=== PATIENT | female | born 1955 | race African-American/Black ===

== ENCOUNTER 2017-12-17 06:36 | Emergency (ER) | payer MEDICAID ==
[~2017-12-17] VITALS: Ht 170.2 cm; Wt 72.0 kg
[~2017-12-17 06:36] MED LIST: LOSA50TA20 PO
[2017-12-17 10:00] VITALS: BP 139/77
== END 2017-12-17 10:23 | disposition home or self-care (01) ==
LOC: ER 06:36
DX: J06.9 Acute upper respiratory infection, unspecified (principal)
CPT/HCPCS: 71045; 99283

== ENCOUNTER 2018-01-09 06:18 | Emergency (ER) | payer MEDICAID ==
[~2018-01-09] VITALS: Ht 170.2 cm; Wt 79.0 kg
[2018-01-09] MEDS ORDERED: IBUPROFEN 600MG TABLET PO ONE (06:45)
[2018-01-09 08:14] VITALS: BP 143/80
== END 2018-01-09 09:02 | disposition home or self-care (01) ==
LOC: ER 06:18
DX: S16.1XXA Strain of muscle, fascia and tendon at neck level, initial encounter (principal); S29.9XXA Unspecified injury of thorax, initial encounter; S29.012A Strain of muscle and tendon of back wall of thorax, initial encounter; R51 Headache; I10 Essential (primary) hypertension; M47.814 Spondylosis without myelopathy or radiculopathy, thoracic region; Y92.410 Unspecified street and highway as the place of occurrence of the external cause
CPT/HCPCS: 70450; 72070; 72125; 99284; Z7610

== ENCOUNTER 2018-01-10 20:34 | Emergency (ER) | payer MEDICAID ==
[~2018-01-10] VITALS: Ht 172.7 cm; Wt 77.0 kg
[2018-01-10] MEDS ORDERED: CYCLOBENZAPRINE 10MG TABLET PO ONE (22:15)
[2018-01-10] MEDS ORDERED: IBUPROFEN 600MG TABLET PO ONE (22:15)
[2018-01-10 22:44] VITALS: BP 126/82
== END 2018-01-10 22:45 | disposition home or self-care (01) ==
LOC: ER 21:21
DX: M54.6 Pain in thoracic spine (principal); M79.1 Myalgia; I10 Essential (primary) hypertension; V89.0XXA Person injured in unspecified motor-vehicle accident, nontraffic, initial encounter; Y93.89 Activity, other specified; Y92.89 Other specified places as the place of occurrence of the external cause; Y99.8 Other external cause status
CPT/HCPCS: 99283

== ENCOUNTER 2018-03-24 12:08 | Emergency (ER) | payer MEDICAID ==
[~2018-03-24] VITALS: Ht 175.3 cm; Wt 89.0 kg
[2018-03-24] MEDS ORDERED: LORAZEPAM 1MG TABLET PO ONE (12:30)
[2018-03-24 15:30] VITALS: BP 133/86
== END 2018-03-24 15:31 | disposition home or self-care (01) ==
LOC: ER 13:26
DX: F41.9 Anxiety disorder, unspecified (principal); I10 Essential (primary) hypertension; G40.909 Epilepsy, unspecified, not intractable, without status epilepticus
CPT/HCPCS: 99284

== ENCOUNTER 2021-05-24 10:12 | Emergency (ER) | payer MEDICAID ==
[~2021-05-24] VITALS: Ht 162.6 cm; Wt 65.0 kg
[~2021-05-24 10:12] MED LIST changes: -LOSA50TA20 PO; +LOSA50TA41 PO
[2021-05-24] MEDS ORDERED: KETOROLAC 30MG/ML VIAL IV STA (10:35)
[2021-05-24] MEDS ORDERED: SODIUM CHLORIDE 0.9% 1,000 ML IV ONE (10:45)
[2021-05-24 11:58] LABS: BASOPHILS % 0.5 % (0.0-2.0); EOSINOPHILS % 2.2 % (0.0-5.0); HEMATOCRIT. 35.1 % (36.0-48.0); HEMOGLOBIN. 11.6 g/dL (12.0-16.0); LYMPHOCYTES % 14.1 % (20.0-50.0); MEAN CORPUSCULAR HEMOGLOBIN 30.8 pg (28.0-32.0); MEAN PLATELET VOLUME 8.6 fl (7.4-10.4); MONOCYTES % 6.9 % (2.0-8.0); NEUTROPHILS % 76.3 % (40.0-76.0); PLATELET 376 x1000/uL (130-400); RED BLOOD CELL COUNT 3.77 mill/uL (4.2-5.4); RED CELL DISTRIBUTION WIDTH 14.3 % (11.6-14.6)
[2021-05-24] MEDS ORDERED: TOPUD PO (12:02)
[2021-05-24 12:06] LABS: CHLORIDE 107 mEq/L (98-107)
[2021-05-24 12:20] VITALS: BP 134/75
[2021-05-24 15:39] LABS: CLARITY URINE CLEAR (CLEAR); COLOR URINE YELLOW (YELLOW); KETONES URINE NEGATIVE (NEGATIVE); LEUKOCYTE ESTERASE URINE NEGATIVE (NEGATIVE); NITRITE URINE NEGATIVE (NEGATIVE); OCCULT BLOOD URINE TRACE (NEGATIVE); PH URINE 5.5 (4.5-8.0); PROTEIN URINE NEGATIVE (NEGATIVE); SPECIFIC GRAVITY URINE 1.021 (1.005-1.030); UROBILINOGEN URINE 0.2 E.U./dL (0.2-1.0)
== END 2021-05-24 12:29 | disposition home or self-care (01) ==
LOC: ER 10:12
DX: M25.551 Pain in right hip (principal); M25.511 Pain in right shoulder; I10 Essential (primary) hypertension; G40.909 Epilepsy, unspecified, not intractable, without status epilepticus; W01.0XXA Fall on same level from slipping, tripping and stumbling without subsequent striking against object, initial encounter; Y93.89 Activity, other specified; Y92.512 Supermarket, store or market as the place of occurrence of the external cause; Y99.8 Other external cause status
CPT/HCPCS: 36415; 71045; 73030; 73502; 80053; 81003; 85025; 93005; 99285; J1885; J7030

== ENCOUNTER 2021-12-23 14:20 | Emergency (ER) | payer MEDICAID ==
[~2021-12-23] VITALS: Ht 162.6 cm; Wt 73.0 kg
[~2021-12-23 14:20] MED LIST changes: +TOPUD PO
[2021-12-23 14:24] VITALS: BP 136/78
[2021-12-23] MEDS ORDERED: IBUP-2028 MT (16:38)
[2021-12-23] MEDS: IBUPROFEN 400MG TABLET PO ONE (16:40)
== END 2021-12-23 17:49 | disposition home or self-care (01) ==
LOC: ER 14:20
DX: M25.562 Pain in left knee (principal); M25.512 Pain in left shoulder; R51.9 Headache, unspecified; W01.0XXA Fall on same level from slipping, tripping and stumbling without subsequent striking against object, initial encounter; Y93.89 Activity, other specified; Y92.89 Other specified places as the place of occurrence of the external cause; Y99.8 Other external cause status
CPT/HCPCS: 73030; 73560; 99284